=== PATIENT | female | born 1970 | race Caucasian/White ===

== ENCOUNTER 2025-01-07 11:47 | Outpatient (AMB) | payer OTHER, SELFPAY ==
--- NOTE | 2025-01-07 11:47 | MHC.PC.OV ---
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 Required: No Is last menstrual period known: No Post menopausal: No Patient : No Allergies No Known Allergies Allergy (Verified 01/07/25 12:14) Medication List - Last Reviewed 01/07/25 by Rhonda Sargent MA atorvastatin 10 mg PO DAILY cetirizine (Zyrtec) 10 mg PO DAILY PRN levothyroxine 100 mcg orally Friday & Friday; levothyroxine orally friday - Friday; metformin 1,000 mg PO BID ui-bfx-tecdt-calcium carb-K1 400 mcg-500 mg calcium-20 mcg tabs PO pioglitazone 30 mg PO DAILY turmeric root extract 500 mg PO DAILY Tobacco use date assessed: 01/07/25 Dental Screening Dental Screen Date: 01/07/25 Did you have a dental visit in the last 12 months?: Yes Did you have a dental problem in the last 6 months where you did not have access to dental care?: No Was dental information given to patient?: Patient has dentist HPI HPI Comments History of Present Illness Details 54-year-old female presents to establish care. She admits to taking her medications as prescribed without adverse reactions. Last A1c check was a year ago. Prior PCP? - [facility] Last office visit/CPE/labs - Over a year ago Acute issue(s) - None Past Medical History - Diabetes, HLD, hypothyroidism, herplex simplex virus 1, umbilical hernia, allergies Surgical History - Right ankle surgery Family History - Dad: Alcohol abuse Social History - Nonsmoker. Does not vape. Drinks sugar-free wine occasionally. Denies recreational drug use - Has been making healthy dietary choices. Walks routinely. Difficulty maintaining sleep, tosses and turns, snores but never had asleep study Health maintenance - Last eye exam was about a year ago with [facility]. Encouraged to schedule an appointment for an eye exam. She will sign a release for her PCP to obtain her ophthalmology record - Last dental visit was a months ago - Last tetanus vaccine was more than 10 years ago; Declines vaccination today - Has not been vaccinated for the flu this season; declines vaccination - Last pap smear test was 6 years ago. Referred to [facility] hunting sales associate for a pap smear test - Last mammogram was last year with [facility]: normal. Record not currently available. Mammogram ordered - She has never had a colonoscopy. Declines colonoscopy. Denies family history of colon cancer. Cologuard ordered per request [facility] Medical History (Updated 01/07/25 @ 14:39 by Dedrick Viera CNP) Swelling Diabetes Thyroid disorder History of sinus problem Hernia Surgical History (Updated 01/07/25 @ 12:04 by Rhonda Sargent MA) History of ankle surgery Family History (Updated 01/07/25 @ 12:06 by Rhonda Sargent MA) Father Alcohol abuse Diabetes Sister Thyroid disorder Social History Housing: Apartment Patient Tobacco Use Status: Never used Tobacco e-Cigarette/Vaping Use: Never Used Second Hand Smoke Exposure: No service: No Current occupational status: employed Current occupation: [email or web address] Current occupational exposures/hazards: No Cognitive needs: No Hearing needs: No Vision needs: Yes Questionnaire PHQ-9 Over the last 2 weeks, how often have you been bothered by any of the following problems? 1. Little interest or pleasure in doing things: not at all 2. Feeling down, depressed, or hopeless: not at all 3. Trouble falling or staying asleep, or sleeping too much: not at all 4. Feeling tired or having little energy: several days 5. Poor appetite or overeating: not at all 6. Feeling bad about yourself - or that you are a failure or have let yourself or your family down: not at all 7. Trouble concentrating on things, such as reading the newspaper or watching television: not at all 8. Moving or speaking so slowly that other people could have noticed. Or the opposite - being so fidgety or restless that you have been moving around a lot more than usual: not at all 9. Thoughts that you would be better off or of hurting yourself in some way: not at all Total score: 1 Depression Screening Interpretation: Negative Depression Screening Done: Yes 69250 - PHQ-9 Billing: Yes Source: Developed by Drs. Davin Hwang, Maegan Lawson, Juan Albarado and colleagues, with an educational hermilo from [employer]. Thrive Questionnaire Date Thrive assessed: 01/07/25 I am a: Patient What is your living situation today?: I have a steady place to live Within the past 12 months, did the food you bought not last and you didn't have the money to get more?: Never true Within the past 12 months, did you worry whether your food would run out before you got money to buy more?: Never true Do you have trouble paying for medicines?: No Do you have trouble getting transportation to medical appointments?: No Do you have trouble paying your heating and electricity bill?: No Do you have trouble taking care of your child, family member or friend?: No Do you have trouble with day-to-day activities such as bathing, preparing meals, shopping, managing finances, etc.?: No Are you currently unemployed and looking for a job?: No Are you interested in more education?: No Please select the resources that you would like help with: None Currently or been in a relationship where the following occur: No concerns reported THRIVE Score: 0 AUDIT C Alcohol Use Questionnaire (AUDIT-C) 1. How often do you have a drink containing alcohol?: 2-4 times a month 2. How many drinks containing alcohol do you have on a typical day when you are drinking?: 3 or 4 3. How often do you have six or more drinks on one occasion?: Never Total Score: 3 Score Reviewed/Action Taken: Yes KATHERINE-7 AMB Questionnaire KATHERINE-7 Date KATHERINE - 7 assessed: 01/07/25 Feeling nervous, anxious, or on edge: 0 = Not at all Not being able to stop or control worryin = Not at all Worrying too much about different things: 0 = Not at all Trouble relaxin = Not at all Being so restless that it is hard to sit still: 0 = Not at all Becoming easily annoyed or irritable: 0 = Not at all Feeling afraid as if something awful might happen: 0 = Not at all Total KATHERINE-7 score (0-4 normal; 5-9 mild; 10-14 moderate; 15-21 severe): 0 Source: Developed by Drs. Davin Hwang, Maegan Lawson, Juan Albarado and colleagues, with an educational hermiol from [employer]. KATHERINE-7 Assessment Billing KATHERINE-7 Assessment Tool: KATHERINE-7 Assessment 97487 Review of Systems Const Details: Denies chills, Denies fatigue, Denies fever(s), Denies headache(s) and Denies weakness HEENT Denies change in vision, Denies dizziness, Denies headache(s), Denies hearing loss, Denies nasal congestion, Denies sinus pain, Denies sinus pressure and Denies sore throat Card Denies chest pain, Denies lightheadedness, Denies dyspnea and Denies other (palpitations) Resp Denies cough, Denies dyspnea and Denies wheezing GI Denies abdominal pain, Denies melena, Denies hematochezia, Denies change in bowel habits, Denies dyspepsia and Denies nausea Denies hematuria and Denies dysuria Musc Denies abnormal gait, Denies myalgias, Denies arthralgias, Denies numbness and Denies tingling Skin/Breast Denies rash, Denies unusual bruising and Denies wounds Neuro Denies abnormal gait, Denies dizziness, Denies headache(s), Denies memory loss, Denies numbness, Denies Sensory deficit (Neuro), Denies tingling and Denies weakness Psych Denies anxiety, Denies depression and Denies memory loss Endo Denies cold intolerance, Denies fatigue, Denies heat intolerance, Denies polydipsia and Denies polyuria Aaron/Lymph Denies easy bleeding and Denies easy bruising Aller/Immun Denies wheezing Physical exam (Primary Care) Vital Signs: Last Vital Signs Temp 98.6 F 01/07/25 12:00 Pulse 78 01/07/25 12:00 Resp 16 01/07/25 12:00 BP 123/70 01/07/25 12:00 Pulse Ox 98 01/07/25 12:00 Oxygen Delivery Method Room Air 01/07/25 12:00 BMI result Body Mass Index 39.6 Tobacco/Smoking Status: Tobacco use Status Tobacco use date assessed 01/07/25 01/07/25 11:59 Patient Tobacco Use Status Never used Tobacco 01/07/25 11:59 e-Cigarette/Vaping Use Never Used 01/07/25 11:59 PHQ-9: PHQ-9 Score PHQ-9: Total score 1 01/07/25 12:10 Depression Screening Interpretation: Negative Thrive Assessment: Date of Thrive Assessment Date Thrive assessed 01/07/25 01/07/25 11:59 Currently or been in a relationship where the following occur: No concerns reported Const Other: General: no acute distress, well developed, alert and awake Nutritional Appearance: well nourished Orientation/consciousness: patient oriented x3 [facility] Head: Yes normocephalic and Yes atraumatic Ears: hearing grossly normal bilaterally and TM's normal bilaterally General nose exam: Normal external nose present and Normal nares present Mouth: Normal oral and palatal mucosa present and moist mucous membranes Teeth and gingiva: dentition normal Throat: Yes oropharynx normal Eyes Pupils: Equal, round and reactive pupils present and Pupil accommodation reflex normal EOM: EOMs intact bilaterally Neck Neck: Yes normal visual inspection, Yes no lymphadenopathy and Yes trachea midline Thyroid: Thyroid normal Carotids: no bruits Lymphatic: no lymphadenopathy noted Chest Chest palpation & inspection: normal inspection of the chest Resp Effort & Inspection: normal respiratory effort Auscultation: clear to auscultation bilaterally Cardio Rate: regular rate Rhythm: regular rhythm Heart sounds: S1 normal heart sound present, S2 normal heart sound present, no gallops, no murmurs and no rubs Bruits: no abdominal aortic bruits and no carotid bruits GI Palpation (GI): No Abdominal aortic bruit present, Soft to palpation, nontender, No hepatosplenomegaly present and No Rebound tenderness present Auscultation: normal bowel sounds General: Yes no CVA tenderness Back/Spine/Pelvis Back: no CVA tenderness Cervical Spine: cervical ROM normal and No Cervical spine tenderness Thoracic/Lumbar Spine: thoraco-lumbar ROM normal, No pain with thoraco-lumbar ROM, No thoracic spinal tenderness and No lumbar spinal tenderness Skin General: warm and dry. Normal skin color. Normal skin turgor Lesions: no lesions Rashes: no rashes Trauma: no lacerations or abrasions Wounds: no wounds Nails: normal Neuro General: patient oriented x3, gait normal and CN's II-XI intact bilaterally Cranial nerves: Yes Equal, round and reactive pupils present Cognition (Neuro): normal cognition Gait exam (Neuro): Normal gait present Motor exam (neuro): 5/5 motor strength present throughout Sensory Exam: No Sensory deficit (Neuro) Deep tendon reflexes (DTR's): Right patellar reflex intensity grade: 2+ and Left patellar reflex intensity grade: 2+ Extrem General: Yes normal to inspection, No edema and No calf tenderness Psych Appearance: grossly normal Affect: normal affect Attitude: cooperative Thought process: Normal thought process present Results AMB Hemoglobin A1c AMB Hemoglobin A1c 5.5 % Last Edit by Rhonda Sargent MA on 01/07/25 12:45 Results Reviewed Results Reviewed: Laboratory Last Values Hgb A1c (Clinic) 5.5 % (4.0-6.0) 01/07/25 12:34 Coding Level of Care Code New Pt Level 4 (12691) New Pt Prev Care 40-64y(91037) Diagnoses Normal physical examination, routine Z00.00 Type 2 diabetes mellitus E11.9 Hypothyroidism E03.9 Sleep disturbance G47.9 Snoring R06.83 Obesity (BMI 30-39.9) E66.9 Pap smear for cervical cancer screening Z12.4 Breast cancer screening by mammogram Z12.31 Colon cancer screening Z12.11 Additional Codes KATHERINE-7 Assessment Billing - KATHERINE-7 Assessment Tool: KATHERINE-7 Assessment 88660 ([id number]) PHQ-9 - 54902 - PHQ-9 Billing: Yes ([id number]) Assessment & Plan Assessment & Plan (1) Normal physical examination, routine: Code(s): Z00.00 - Encounter for general adult medical examination without abnormal findings Category: Medical Plan: No significant functional limitation noted. Continue current treatment regimen. Healthy diet and routine exercise encouraged. Perform lab work and follow-up in 2 weeks for a telehealth visit for labs review and weight management. Return sooner with symptoms or concerns. Verbalized understanding and agreed with the plan. (2) Type 2 diabetes mellitus: Code(s): E11.9 - Type 2 diabetes mellitus without complications Category: Medical Plan: A1d today is 5.5%, within goal of less than 7.0%. Continue current treatment regimen. ADA diet and routine exercise encouraged. Will recheck A1c in 3 months. Verbalized understanding and ageed with the plan. (3) Hypothyroidism: Code(s): E03.9 - Hypothyroidism, unspecified Category: Medical Plan: Continue current management. Will check TSH/T4 and make changes as needed. Verbalized understanding and agreed with the plan. (4) Sleep disturbance: Code(s): G47.9 - Sleep disorder, unspecified Category: Medical Plan: She has difficulty maintaining sleep, tosses and turns, snores but never had asleep study. Instructed on sleep hygiene. Weight management encouraged. Referred to [facility] sleep medicine for a sleep study. (5) Snoring: Code(s): R06.83 - Snoring Category: Medical Plan: Plan as above. (6) Obesity (BMI 30-39.9): Code(s): E66.9 - Obesity, unspecified Category: Medical Plan: She currently weighs 245 lb, BMI is 39.6. She notes this has been making healthy lifestyle choices but has not been able to lose weight. She requests phentermine and college or university department head/dietitian referral for weight management. Healthy diet and routine exercise encouraged. Phentermine 15 mg daily q.a.m. ordered; advised to take as prescribed. Instructed on the risks, benefits, and potential adverse reactions of the medication. Referred to [facility] college or university department head/dietitian. Follow-up for a telehealth visit in 2 weeks or sooner with symptoms or concerns. Verbalized understanding and agreed with the plan. (7) Pap smear for cervical cancer screening: Code(s): Z12.4 - Encounter for screening for malignant neoplasm of cervix Category: Medical Plan: Last pap smear test was 6 years ago. Referred to [facility] hunting sales associate for a pap smear test. (8) Breast cancer screening by mammogram: Code(s): Z12.31 - Encounter for screening mammogram for malignant neoplasm of breast Category: Medical Plan: Last mammogram was last year with [facility]: normal. Record not currently available. Mammogram ordered. (9) Colon cancer screening: Code(s): Z12.11 - Encounter for screening for malignant neoplasm of colon Category: Medical Plan: She has never had a colonoscopy. Declines colonoscopy. Denies family history of colon cancer. Cologuard ordered per request. Orders: Orders Comprehensive Placida. Panel Fast Today Z00.00 - Encounter for general adult medical examination without abnormal findings UA CC w/rflx Micro + Cult Today Z00.00 - Encounter for general adult medical examination without abnormal findings MM screening mammo BI Today Z12.31 - Encounter for screening mammogram for malignant neoplasm of breast Complete Blood Count Auto Diff Today Z00.00 - Encounter for general adult medical examination without abnormal findings Lipid Panel Today Z00.00 - Encounter for general adult medical examination without abnormal findings Microalbumin, Random (w Creat) Today Z00.00 - Encounter for general adult medical examination without abnormal findings TSH reflex Free T4 Today Z00.00 - Encounter for general adult medical examination without abnormal findings Vitamin D 25-OH Total Today Z00.00 - Encounter for general adult medical examination without abnormal findings AMB Hemoglobin A1c Today Z13.9 - Encounter for screening, unspecified Referrals Sleep Medicine Referral G47.9 - Sleep disorder, unspecified, R06.83 - Snoring Cologuard Test Z12.11 - Encounter for screening for malignant neoplasm of colon Nutrition/Dietitian Referral E66.9 - Obesity, unspecified Medications: New phentermine must administer 2 hours after breakfast 15 mg PO DAILY 30 days 30 caps 3RF phentermine must administer 2 hours after breakfast 15 mg PO DAILY 30 days 30 caps 0RF
[2025-01-07 12:00] VITALS: BP 123/70; PULSE 78; RESP 16; TEMP 37; O2SAT 98; BMI 39.6
--- OUTSIDE RECORDS SUMMARY | 2025-01-07 12:38 | XMS_ITS | Clinical Summary ---
Author Organization [facility] Address [address] [place] [address] Care Team Providers Care Vocational Guidance Counselor Name Role Phone Diana Mcwilliams MD Primary Care Provider [phone] Allergies Active Allergy Reactions Criticality Noted Date Comments Other 05/07/2024 Medications atorvastatin (LIPITOR) 10 mg tablet Take 1 Tablet by mouth daily. 05/26/2024 Active levothyroxine (SYNTHROID, LEVOTHROID) 100 mcg tablet TAKE 1 TABLET BY MOUTH TWICE A WEEK. ONLY ON WEEKENDS. 05/26/2024 Active levothyroxine (SYNTHROID, LEVOTHROID) 125 mcg tablet TAKE 1 TABLET BY MOUTH ONCE DAILY ON FRIDAY- Friday05/26/2024 Active metFORMIN (GLUCOPHAGE) 1,000 mg tablet Take 1 Tablet by mouth 2 times daily (with meals). 05/26/2024 Active pioglitazone (ACTOS) 30 mg tablet Take 1 Tablet by mouth daily. 05/26/2024 Active SITagliptin phosphate (Januvia) 100 mg tablet Take 1 Tablet by mouth daily. 05/26/2024 Active valACYclovir (VALTREX) 1 gram tablet Take 2 Tablets by mouth 2 times daily. 05/26/2024 Active Active Problems Problem Noted Date Diagnosed Date DM (diabetes mellitus) (CMS/HCC V24, CMS/HCC V28 ) 11/19/2023 Fatty liver 11/19/2023 Hypothyroidism 11/19/2023 Closed fracture of ankle 09/22/2006 Overview (09/02/2024): right ankle fracture, age 18, surgical repair IMO update HSV infection 09/22/2006 Overview (09/02/2024): right ankle fracture, age 18, surgical repair Medical History Medical History Date Comments Unspecified closed fracture of ankle 09/22/2006 DX:Unspecified closed fracture of ankle; COMMENT: right ankle fracture, age 18, surgical repair DM (diabetes mellitus) (CMS/ HCC V24, CMS/HCC V28) DX:DM (diabetes mellitus) (H CC) Fatty liver DX:Fatty liver Hypothyroidism DX:Hypothyroidis m HSV infection DX:HSV infection Family History Medical History Relation Name Comments Diabetes Father 64 Other: alive and well Mother Relation Name Status Comments Father Mother Social History Tobacco Use Types Packs/Day Years Used Date Smoking Tobacco: Never Smokeless Tobacco: Never Alcohol Use Standard Drinks/Week Comments Never 0 (1 standard drink = 0.6 oz pur e alcohol) Comments Unknown Sex and Gender Information Value Date Recorded Sex Assigned at Not on file Legal Sex Female 8:40 PM EST Gender Identity Not on file Sexual Orientation Not on file Obstetrics History Last Filed Vital Signs Vital Sign Reading Time Taken Comments Blood Pressure 103/72 05/07/2024 9:24 AM EDT Pulse 79 05/07/2024 9:24 AM EDT Temperature - - Respiratory Rate - - Oxygen Saturation - - Inhaled Oxygen Concentration - - Weight 110 kg (242 lb) 05/07/2024 9:24 AM EDT Height 167.6 cm (5' 6 ) 05/07/2024 9:24 AM EDT Body Mass Index 39.06 05/07/2024 9:24 AM EDT Plan of Treatment Upcoming Encounters Date Type Department Care Team (Late st Contact Info) Description 02/28/2025 2:30 PM EDT Office Visit Bariatric Surgery - [place] [address] [phone] Renata Gonzalez PA 175 [facility] [address] [place] [address] Health Maintenance Due Date Last Done Comments Diabetes: Annual Foot Exam 1979 DTaP,Tdap,and Td Vaccines (1 - Tdap) 01/14/1988 Hepatitis A Vaccines (1 of 2 - Risk 2-dose series) 01/14/1988 Hepatitis B Vaccines (1 of 3 - 19+ 3-dose series) 01/14/1988 Pneumococcal Vaccine: 50+ Years (1 of 2 - PCV) 01/14/1988 Pneumococcal Vaccine: Pediatrics (0 to 5 Years) and At-Risk Patients (6 to 64 Years) (1 of 2 - PCV) 01/14/1988 Cervical Cancer Screening: P ap Smear 1990 Zoster Vaccines (1 of 2) 2019 Colorectal Cancer Screening: Colonoscopy 07/13/2022 Depression Screening 07/13/2022 HIV Screening 07/13/2022 Hepatitis C Screening 07/13/2022 Social Influencers of Health Screening 07/13/2022 COVID-19 Vaccine (2023-2 5 season) 2024 Breast Cancer Screening 06/02/2024 06/02/20, 04/08/2021, 03/16/2019 Diabetes: Annual Retina Eye Exam 10/13/2024 10/14/2023 Diabetes: Blood Sugar Contro l Test (HGBA1C) 11/04/2024 05/07/2024, 05/07/2024 Diabetes: Annual Urine Albumin-Creatinine Ratio (uACR) 11/19/2024 11/20/2023 Diabetes: Annual GFR (Glomerular Filtration Rate) 11/19/2024 11/20/2023 Influenza Vaccine (Season Ended) 2025 Cholesterol Screening (Lipid Panel) 11/19/2028 11/20/2023 HIB Vaccines Aged Out No longer eligi ble based on patient's age to complete this topic HPV Vaccines Aged Out No longer eligi ble based on patient's age to complete this topic IPV Vaccines Aged Out No longer eligi ble based on patient's age to complete this topic MMR Vaccines Aged Out No longer eligi ble based on patient's age to complete this topic Meningococcal ACWY Vaccine Aged Out N o longer eligible based on patient's age to complete this topic Meningococcal B Vaccine Aged Out No l onger eligible based on patient's age to complete this topic RSV Immunization Patients Under 20 months Aged Out No longer eligible b ased on patient's age to complete this topic Varicella Vaccines Aged Out No longer eligible based on patient's age to complete this topic Procedures Procedure Name Priority Date/Time Associated Diagnosis Comments HEMOGLOBIN A1C Routine 05/07/2024 HM URINE ALBUMIN CREATININE RATIO Routine 11/20/2023 ANNUAL BMP BLOOD TEST Routine 11/20/2023 LIPID PANEL Routine 11/20/2023 DIABETES EYE EXAM Routine 10/14/2023 [facility] SCREENING DIGITAL Routine 06/02/2022 8:38 AM EDT Encounter for screening mammogram for malignant neoplasm of breast from Last 3 Months or Most Recently Relevant to Health Maintenance Results * Hemoglobin A1c (05/07/2024) Pathologist [facility] Hemoglobin A1C 5.6 <=6.5 % Blood Venous blood specimen / Unknown [facility] Provider LAB BLOOD ORDERABLES Christy l Result * Urine Albumin Creatinine Ratio (11/20/2023) Pathologist [facility] Urine Albumin Creatinine Ratio Abstracted [facility] Provider HEALTH MAINTENANCE Final Result * Annual BMP Blood Test (11/20/2023) Pathologist [facility] Annual BMP Blood Test Abstracted [facility] Provider HEALTH MAINTENANCE Final Result * Lipid panel (11/20/2023) [facility] LDL/HDL Ratio 2 0 - 4 Triglycerides 84 0 - 150 mg/dL Cholesterol 134 0 - 200 mg/dL HDL 59 >=40 mg/dL LDL Cholesterol 59 mg/dL Blood Venous blood specimen / Unknown [facility] Provider LAB BLOOD ORDERABLES Christy l Result * Diabetes Eye Exam (10/14/2023) Pathologist [facility] Diabetes: Annual Retina Eye Exam Abstracted [facility] Provider HEALTH MAINTENANCE Final Result * [facility] SCREENING DIGITAL (06/02/2022 8:38 AM EDT) Anatomical Region Laterality Modality Mammography 05/30/2022 10:0 3 AM EDT Narrative 06/02/2022 8:38 AM EDT [facility] Diagnostic Imaging Department [address] [place] [id number] Patient: ??MATT CARRENO ?/Age/Sex: 1970 - 52 - F Unit#: ??[id number] ? Location/Status: ??SPDIMAM/REG CLI ? Mnemonic/Ordering Site: ??DIGSC/SPMAM Ordering Physician: ??ALYSSIA GRAVES MD Ak[facility] Screening Digital - 06/01/22834 EXAM: Kath Screening Digital EXAM DATE AND TIME: 06/01/2022 8:35 AM HISTORY: ??Annual screening. ??Family history of breast carcinoma in maternal grandmother. COMPARISON: ??04/07/2021, 03/16/2019 TECHNIQUE: CC and MLO views of both breasts were obtained using full field digital mammography. Bilateral digital breast tomosynthesis was performed in the MLO projection. 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 TISSUE DENSITY: a. The breasts are almost entirely fatty. FINDINGS: Increased number of calcifications in the anterior left breast, 11 o'clock axis requiring spot magnification views for further evaluation. ??No mass or architectural distortion in the left breast. The right breast is stable. ??No suspicious masses, grouped microcalcifications, or areas of architectural distortion are seen. The skin and vascularity are unremarkable. IMPRESSION: Increased number of calcifications in the anterior left breast. ??Spot magnification CC and mediolateral views are recommended. No evidence of malignancy is seen in the right breast. A negative mammogram in the presence of a clinically suspicious palpable abnormality does not preclude the possibility of malignancy or alter the indications for biopsy. BI-RADS: ??Category 0: Incomplete - Need Additional Imaging Evaluation RECOMMENDATION(S): 1: Special view LEFT as soon as possible [id number], [id number], 7025F Dictating Physician: ??MACK BEACH MD Electronically Signed by: ??MACK BEACH MD Dic Date/Time: ??06/02/22831 Sign date/Time: ??06/02/22837 Procedure Note Luci Beach MD - 07/31/2022 [facility] Diagnostic Imaging Department [address] [place] [address] Patient: MATT CARRENO Jordan /Age/Sex: 1970 - 52 - F Unit#: [id number] [facility]Ordering Site[facility] Ordering Physician: ALYSSIA GRAVES MD [facility] Screening Digital - 06/01/22834 EXAM: [facility] Screening Digital EXAM DATE AND TIME: 06/01/2022 8:35 AM HISTORY: Annual screening. Family history of breast carcinoma inmaternal grandmother. COMPARISON: 04/07/2021, 03/16/2019 TECHNIQUE: CC and MLO views of both breasts were obtained using fullfield digital mammography. Bilateral digital breast tomosynthesis was performedin the MLO projection. 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 TISSUE DENSITY: a. The breasts are almost entirely fatty. FINDINGS: Increased number of calcifications in the anterior left breast, 11 o'clockaxis requiring spot magnification views for further evaluation. No mass or architectural distortion in the left breast. The right breast is stable. No suspicious masses, groupedmicrocalcifications, or areas of architectural distortion are seen. The skin and vascularityare unremarkable. IMPRESSION: Increased number of calcifications in the anterior left breast. Spot magnification CC and mediolateral views are recommended. No evidence of malignancy is seen in the right breast. A negative mammogram in the presence of a clinically suspicious palpable abnormality does not preclude the possibility of malignancy or alter the indications for biopsy. BI-RADS: Category 0: Incomplete - Need Additional Imaging Evaluation RECOMMENDATION(S): 1: Special view LEFT as soon as possible [id number], [id number], 7025F Dictating Physician: MACK BEACH MD Electronically Signed by: MACK BEACH MD Dic Date/Time: 06/02/22831 Sign date/Time: 06/02/22837 Alyssia Graves MD IMG BI PROCEDURES Final Result from Last 3 Months or Most Recently Relevant to Health Maintenance Care Teams Vocational Guidance Counselor Relationship Specialty Start Date End Date Diana Mcwilliams MD PCP - General 10/13/23
== END 2025-01-07 13:06 | disposition home or self-care (01) ==
LOC: HO.HMCFM 11:47
PROVIDERS: PCP Nurse Practitioner Family; Visit Provider Nurse Practitioner Family
DX: Z00.00 Encounter for general adult medical examination without abnormal findings (principal); E11.9 Type 2 diabetes mellitus without complications; E66.9 Obesity, unspecified; Z68.39 Body mass index [BMI] 39.0-39.9, adult; E03.9 Hypothyroidism, unspecified; G47.9 Sleep disorder, unspecified; R06.83 Snoring; Z12.31 Encounter for screening mammogram for malignant neoplasm of breast; Z12.11 Encounter for screening for malignant neoplasm of colon

== ENCOUNTER → 2025-01-07 11:47 | Outpatient (BNVA) | payer OTHER, SELFPAY | PROVIDERS: PCP Nurse Practitioner Family; Visit Provider Nurse Practitioner Family | DX: Z00.00 Encounter for general adult medical examination without abnormal findings (principal); E11.9 Type 2 diabetes mellitus without complications; E03.9 Hypothyroidism, unspecified; E78.5 Hyperlipidemia, unspecified; G47.9 Sleep disorder, unspecified; R06.83 Snoring; E66.9 Obesity, unspecified; Z68.39 Body mass index [BMI] 39.0-39.9, adult | CPT/HCPCS: 83036; 96127; 99202; 99386 ==

== ENCOUNTER 2025-01-07 13:20 | Outpatient (REF) | payer OTHER, SELFPAY ==
[2025-01-07 14:52] LABS: MANUAL DIFF FLAG NO
[2025-01-07 15:03] LABS: Basophils Percent Auto 0.7 % (0-2); Eosinophils Absolute Auto 0.1 X10*3/uL (0.0-0.4); Eosinophils Percent Auto 2.3 % (0-4); Hematocrit 44.4 % (37.0-47.0); Hemoglobin 14.4 g/dl (12.0-16.0); Imm Gran Abs Auto 0.02 X10*3/uL (0.00-0.03); Imm Gran Pct Auto 0.4 % (0.0-0.4); Lymphocytes Absolute Auto 1.2 X10*3/uL (1.2-4.9); Lymphocytes Percent Auto 22.3 % (20-40); Mean Corpuscular HGB Conc 32.4 g/dl (31.0-35.0); Mean Corpuscular Hemoglobin 29.4 pg (27.0-33.0); Mean Corpuscular Volume 90.6 fL (80.0-98.0); Mean Platelet Volume 10.9 fL (9.4-12.3); Monocytes Absolute Auto 0.4 X10*3/uL (0.1-1.2); Monocytes Percent Auto 7.7 % (2-11); Neutrophils Absolute Auto 3.7 x10*3/uL (2.0-8.3); Neutrophils Percent Auto 66.6 % (45-73); Platelet Count 216 X10*3/uL (160-400); Red Cell Distribution Width 13.2 % (11.0-16.0); White Blood Count 5.6 X10*3/uL (4.8-10.8)
[2025-01-07 16:13] LABS: Alanine Aminotransferase 25 U/L (0-31); Albumin Level 4.5 g/dL (3.5-5.0); Anion Gap 11 (12-20); Aspartate Amino Transferase 26 U/L (5-31); Blood Urea Nitrogen 15 mg/dL (9-16); Calcium 10.5 mg/dL (8.4-10.2); Carbon Dioxide 28 mmol/L (22-29); Chloride 105 mmol/L (96-108); Cholesterol 167 mg/dL (<200); Estimated Glomerular Filt Rate > 60; Glucose Fasting 96 mg/dL (60-99); HDL Cholesterol 44 mg/dL (>40); LDL Cholesterol Calculated 81 mg/dL (<100); Potassium 4.2 mmol/L (3.3-5.1); Sodium 140 mmol/L (135-145); TSH reflex Free T4 0.67 uIU/mL (0.32-4.0); Total Protein 7.5 g/dL (6.5-8.0); Triglycerides 214 mg/dL (<150); Vitamin D 25-OH Total 37.4 ng/mL (>30)
[2025-01-07 17:07] LABS: Alkaline Phosphatase 56 U/L (39-117)
[2025-01-10 12:48] LABS: Creatinine Urine 298.79 mg/dL; Microalbum/Creatinine Ratio Ur 8.3 ug/mg cr (<30)
== END 2025-01-07 13:21 | disposition home or self-care (01) ==
LOC: HO.WFDLDS 13:20
PROVIDERS: Visit Provider Nurse Practitioner Family
DX: Z00.00 Encounter for general adult medical examination without abnormal findings (principal); Z13.220 Encounter for screening for lipoid disorders; Z13.29 Encounter for screening for other suspected endocrine disorder; Z13.228 Encounter for screening for other metabolic disorders; Z13.9 Encounter for screening, unspecified
CPT/HCPCS: 36415; 80053; 80061; 82043; 82306; 82570; 84443; 85025

== ENCOUNTER 2025-03-08 14:17 | Outpatient (AMB) | payer OTHER, SELFPAY ==
--- NOTE | 2025-03-08 14:05 | MHC.PC.OV ---
Intake Visit Reasons: Telehealth 2 wks labs review Intake Note: patient here for 2wks Telehealth follow up for lab review and patient needs refill on medication. Senior Teradata Developer Required: No Is last menstrual period known: No Post menopausal: No Patient : No Allergies No Known Allergies Allergy (Verified 03/08/25 14:05) Tobacco use date assessed: 03/08/25 Dental Screening Dental Screen Date: 03/08/25 Did you have a dental visit in the last 12 months?: Yes Did you have a dental problem in the last 6 months where you did not have access to dental care?: No Was dental information given to patient?: Patient has dentist HPI HPI Comments History of Present Illness Details 55-year-old female presents for a telehealth visit for review of recent labs result. She admits to taking her medications as prescribed without adverse reactions. She notes that she has been making healthy lifestyle changes. She did not schedule an appointment with [facility] service engine repairer/dietitian because her schedule does not permit. No acute symptoms at this time. [facility] Medical History (Updated 03/08/25 @ 15:39 by Dedrick Viera CNP) Swelling Diabetes Thyroid disorder History of sinus problem Hernia Surgical History (Updated 01/07/25 @ 12:04 by Rhonda Sargent MA) History of ankle surgery Family History (Updated 01/07/25 @ 12:06 by Rhonda Sargent MA) Father Alcohol abuse Diabetes Sister Thyroid disorder Social History Housing: Apartment Patient Tobacco Use Status: Never used Tobacco e-Cigarette/Vaping Use: Never Used Second Hand Smoke Exposure: No Patient : No service: No Current occupational status: employed 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 Davin Hwang, Maegan Lawson, Juan Albarado and colleagues, with an educational hermilo from [employer]. Review of Systems Const Details: Denies chills, Denies fatigue, Denies fever(s), Denies headache(s) and Denies weakness Cardiac Denies chest pain, Denies claudication, Denies leg edema, Denies lightheadedness, Denies palpitations, Denies dyspnea, Denies dyspnea on exertion, Denies orthopnea and Denies other (Loss of consciousness) Resp Denies cough, Denies excessive phlegm production, Denies dyspnea, Denies dyspnea on exertion, Denies snoring and Denies wheezing Physical exam (Primary Care) Tobacco/Smoking Status: Tobacco use Status Tobacco use date assessed 03/08/25 03/08/25 14:14 Patient Tobacco Use Status Never used Tobacco 03/08/25 14:14 e-Cigarette/Vaping Use Never Used 03/08/25 14:14 Thrive Assessment: Date of Thrive Assessment Date Thrive assessed 01/07/25 03/08/25 14:14 Const Other: Patient is alert alert and oriented x3 Telehealth Telehealth Telehealth Platform: Telephone Location of provider rendering services: practice address Location of patient: address on file Patient Identification confirmed using: Name, : Yes Telehealth method: voice only Patient verbally consented to treatment: Yes Patient verbally consented to billing insurance company: Yes Patient informed of any privacy concerns related to visit: Yes Coding Level of Care Code Tele New Pt Level 4 (74738) Diagnoses Hyperlipidemia E78.5 Hypercalcemia E83.52 Time Spent (min) 15 Assessment & Plan Assessment & Plan (1) Hyperlipidemia: Code(s): E78.5 - Hyperlipidemia, unspecified Category: Medical Plan: Recent triglycerides level in December is elevated, 214. Total cholesterol, LDL, and HDL levels are normal. Continue current treatment regimen. Advised to limit foods high in saturated fat and avoid foods high in trans fat. Routine exercise encouraged. Fast for 10-12 hours, may drink water, and perform lipid panel blood work a few days before next visit. Follow-up in 5 weeks for labs review and diabetes. Return sooner with symptoms or concerns. Verbalized understanding and agreed with the plan. (2) Hypercalcemia: Code(s): E83.52 - Hypercalcemia Category: Medical Plan: Recent calcium level in December is slightly elevated, 10.5. Will recheck calcium levels and make changes as needed. Orders: Orders Calcium 1 Month E83.52 - Hypercalcemia Lipid Panel 1 Month E78.5 - Hyperlipidemia, unspecified
--- OUTSIDE RECORDS SUMMARY | 2025-03-08 14:58 | XMS_ITS | Clinical Summary ---
Author Organization [facility] Address [address] [place] [address] Care Team Providers Care Commissioning Specialist Name Role Phone Unavailable Primary Care Provider Unavailabl e Allergies Active Allergy Reactions Criticality Noted Date [...] Information Value Date Recorded Sex Assigned at Female 02/22/2025 12:23 PM EDT Legal Sex Female 8:40 PM EST Gender Identity Female 02/22/2025 12:23 PM EDT Sexual Orientation Straight 02/22/2025 12 :23 PM EDT Obstetrics History Last Filed Vital Signs Vital [...] 05/07/2024 9:24 AM EDT Plan of Treatment Health Maintenance Due Date Last Done Comments Diabetes: Annual Foot Exam 1979 DTaP,Tdap,and Td Vaccines (1 - Tdap) 01/14/1988 Hepatitis A Vaccines (1 of 2 - Risk 2-dose series) 01/14/1988 Hepatitis B Vaccines (1 of 3 - 19+ 3-dose series) 01/14/1988 Pneumococcal Vaccine: 50+ Years (1 of 2 - PCV) 01/14/1988 Cervical Cancer Screening: P ap Smear 1990 Zoster Vaccines (1 of 2) 2019 Colorectal Cancer Screening: Colonoscopy 07/13/2022 HIV Screening 07/13/2022 Hepatitis C Screening 07/13/2022 Social Influencers of Health Screening 07/13/2022 COVID-19 Vaccine ( - 2023-2 5 season) 2024 Breast Cancer Screening 06/02/2024 06/02/20, 04/08/2021, 03/16/2019 Depression Screening 08/11/2024 Diabetes: Annual Retina Eye Exam 10/13/2024 10/14/2023 Diabetes: Blood Sugar Contro l Test (HGBA1C) 11/04/2024 05/07/2024, 05/07/2024 Diabetes: Annual Urine Albumin-Creatinine Ratio (uACR) 11/19/2024 11/20/2023 Diabetes: Annual GFR (Glomerular Filtration Rate) 11/19/2024 11/20/2023 Influenza Vaccine (#1) 2025 Cholesterol Screening (Lipid Panel) 11/19/2028 11/20/2023 [...] Associated Diagnosis Comments HEMOGLOBIN A1C Routine 05/07/2024 URINE ALBUMIN CREATININE RATIO Routine 11/20/2023 ANNUAL BMP BLOOD TEST Routine 11/20/2023 LIPID PANEL Routine 11/20/2023 DIABETES EYE EXAM Routine 10/14/2023 [facility] SCREENING DIGITAL Routine 06/02/2022 8:38 AM EDT Encounter for screening mammogram for malignant neoplasm of breast from Last 3 Months or Most Recently Relevant to Health Maintenance Results * Hemoglobin A1c (05/07/2024) [facility] Hemoglobin A1C 5.6 <=6.5 % Blood Venous blood specimen / Unknown [facility] Provider LAB BLOOD ORDERABLES Christy l Result * Urine Albumin Creatinine Ratio (11/20/2023) [facility] Urine Albumin Creatinine Ratio Abstracted [facility] Provider HEALTH MAINTENANCE Final Result * Annual BMP Blood Test (11/20/2023) [facility] Annual BMP Blood Test Abstracted [facility] Provider HEALTH MAINTENANCE Final Result * Lipid panel (11/20/2023) [facility] LDL/HDL Ratio 2 0 - 4 Triglycerides 84 0 - 150 mg/dL Cholesterol 134 0 - 200 mg/dL HDL 59 >=40 mg/dL LDL Cholesterol 59 mg/dL Blood Venous blood specimen / Unknown Result [facility] Provider LAB BLOOD ORDERABLES Christy l Result * Diabetes Eye Exam (10/14/2023) [facility] Diabetes: Annual Retina Eye Exam Abstracted Result [facility] Provider HEALTH MAINTENANCE Final Result * KATH SCREENING DIGITAL (06/02/2022 8:38 AM EDT) Anatomical Region Laterality Modality Mammography 05/30/2022 10:0 3 AM EDT Narrative 06/02/2022 8:38 AM EDT [facility] Diagnostic Imaging Department [address] [place] [address] Patient: MATT CARRENOO.B./Age/Sex: 1970 - 52 - F Unit#: [id number] Location/Status: [facility]/REG I Mnemonic/Ordering Site: [facility] Ordering Physician: ALYSSIA GRAVES MD Kath Screening Digital - 06/01/22834 EXAM: Kath Screening Digital EXAM DATE AND TIME: 06/01/2022 8:35 AM HISTORY: Annual screening. Family history of breast carcinoma in maternal grandmother. COMPARISON: 04/07/2021, 03/16/2019 TECHNIQUE: CC and MLO views of both breasts were obtained using full field digital mammography. Bilateral digital breast tomosynthesis was performed in the MLO projection. 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 TISSUE DENSITY: a. The breasts are almost entirely fatty. FINDINGS: Increased number of calcifications in the anterior left breast, 11 o'clock axis requiring spot magnification views for further evaluation. No mass or architectural distortion in the left breast. The right breast is stable. No suspicious masses, grouped microcalcifications, or areas of [...] Special view LEFT as soon as possible [id number], [id number] 3340F, 7025F Dictating Physician: MACK BEACH MD Electronically Signed by: MACK BEACH MD Dic Date/Time: 06/02/22831 Sign date/Time: 06/02/22837 Procedure Note Luci Beach MD - 07/31/2022 [facility] Diagnostic Imaging Department [address] [place] [address] Patient: MATT CARRENO Jordan /Age/Sex: 1970 - 52 - F Unit#: [id number] Location/Status: SPDIMA/REG CLI Mnemonic/Ordering Site: [facility] Ordering Physician: ALYSSIA GRAVES MD Kath Screening Digital - 06/01/22834 EXAM: Kath Screening Digital EXAM DATE AND TIME: 06/01/2022 8:35 AM HISTORY: Annual screening. Family history of breast carcinoma inmaternal grandmother. COMPARISON: 04/07/2021, 03/16/2019 TECHNIQUE: CC and MLO views of both breasts were obtained using fullfield digital mammography. Bilateral digital breast tomosynthesis was performedin the MLO projection. 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 TISSUE DENSITY: a. The breasts are [...] Special view LEFT as soon as possible [id number], [id number] 3340F, 7008F Dictating Physician: MACK BEACH MD Electronically Signed by: MACK BEACH MD Dic Date/Time: 06/02/22831 Sign date/Time: 06/02/22837 us Alyssia Graves MD IMG BI PROCEDURES Final Result from Last 3 Months or Most Recently Relevant to Health Maintenance
== END 2025-03-08 16:00 | disposition home or self-care (01) ==
LOC: HO.HMCFM 14:17
PROVIDERS: PCP Nurse Practitioner Family; Visit Provider Nurse Practitioner Family
DX: E78.5 Hyperlipidemia, unspecified (principal); E83.52 Hypercalcemia

== ENCOUNTER 2025-04-22 08:28 | Outpatient (REF) | payer OTHER, SELFPAY ==
--- OUTSIDE RECORDS SUMMARY | 2025-04-22 08:57 | XMS_ITS | Clinical Summary ---
Author Organization [facility] Address [address] [place] [address] Care Team Providers Care Insight Leader Name Role Phone Unavailable Primary Care Provider [...] 07/13/2022 Social Influencers of Health Screening 07/13/2022 Breast Cancer Screening 06/02/2024 06/02/20 22, 04/08/2021, 03/16/2019 Depression Screening 08/11/2024 Diabetes: Annual Retina Eye Exam 10/13/2024 10/14/2023 Diabetes: Blood Sugar Contro l Test (HGBA1C) 11/04/2024 05/07/2024, 05/07/2024 Diabetes: Annual Urine Albumin-Creatinine Ratio (uACR) 11/19/2024 11/20/2023 Diabetes: Annual GFR (Glomerular Filtration Rate) 11/19/2024 11/20/2023 COVID-19 Vaccine (2023-2 5 season) 2025 Influenza Vaccine (#1) 2025 Cholesterol Screening (Lipid [...] Health Maintenance Results * Hemoglobin A1c (05/07/2024) [facility] Hemoglobin A1C 5.6 <=6.5 % Blood Venous blood specimen / Unknown [facility] Provider LAB BLOOD ORDERABLES Christy l Result * Urine Albumin Creatinine Ratio (11/20/2023) [facility] Urine Albumin Creatinine Ratio Abstracted [facility] Provider HEALTH MAINTENANCE Final Result * Annual BMP Blood Test (11/20/2023) [facility] Annual BMP Blood Test Abstracted [facility] Provider HEALTH MAINTENANCE Final Result * Lipid panel (11/20/2023) [facility] LDL/HDL Ratio 2 0 - 4 Triglycerides 84 0 - 150 mg/dL Cholesterol 134 0 - 200 mg/dL HDL 59 >=40 mg/dL LDL Cholesterol 59 mg/dL Blood Venous blood specimen / Unknown Result [facility] Provider LAB BLOOD ORDERABLES Christy l Result * Diabetes Eye Exam (10/14/2023) [facility] Diabetes: Annual Retina Eye Exam Abstracted Result [facility] Provider HEALTH MAINTENANCE Final Result * KATH SCREENING DIGITAL (06/02/2022 8:38 AM EDT) Anatomical Region Laterality Modality Mammography 05/30/2022 10:0 3 AM EDT Narrative 06/02/2022 8:[address] [facility] Diagnostic Imaging Department [address] [place] [address] Patient: MATT CARRENOO.B./Age/Sex: 1970 - 52 - F Unit#: [id number] Location/Status: [facility]/REG I Mnemonic/Ordering Site: [facility] Ordering Physician: ALYSSIA GRAVES MD Kath Screening [...] MLO projection. 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 TISSUE DENSITY: a. The [...] Special view LEFT as soon as possible [id number], [id number] 3340F, 7025F Dictating Physician: MACK BEACH MD Electronically Signed by: MACK BEACH MD Dic Date/Time: 06/02/22831 Sign date/Time: 06/02/22837 Procedure Note Luci Beach MD - 07/31/2022 [facility] Diagnostic Imaging Department [address] [place] [address] Patient: MATT CARRENO Jordan /Age/Sex: 1970 - 52 - F Unit#: [id number] Location/Status: [facility]/REG CLI Mnemonic/Ordering Site: [facility] Ordering Physician: ALYSSIA GRAVES MD Kath Screening Digital - 06/01/22834 EXAM: Kath Screening Digital EXAM DATE AND TIME: 06/01/2022 8:35 AM HISTORY: Annual screening. Family history of breast carcinoma inmaternal grandmother. COMPARISON: 04/07/2021, 03/16/2019 TECHNIQUE: CC and MLO views of both breasts were obtained using fullfield digital mammography. Bilateral digital breast tomosynthesis was performedin the MLO projection. 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 TISSUE DENSITY: a. The breasts are [...] Special view LEFT as soon as possible [id number], [id number], 7038F Dictating Physician: MACK BEACH MD Electronically Signed by: MACK BEACH MD Dic Date/Time: 06/02/22831 Sign date/Time: 06/02/22837 us Alyssia Graves MD IMG BI PROCEDURES Final Result from Last 3 Months or Most Recently Relevant to Health Maintenance
[2025-04-22 11:52] LABS: Appearance Urine Clear; Glucose Urine UA Negative (Negative); PH 5.5 (5.0-9.0); Specific Gravity - Urine 1.015 (1.005-1.025)
[2025-04-22 12:23] LABS: Calcium 9.7 mg/dL (8.4-10.2); Cholesterol 135 mg/dL (<200); HDL Cholesterol 48 mg/dL (>40); Triglycerides 92 mg/dL (<150)
== END 2025-04-22 08:29 | disposition home or self-care (01) ==
LOC: HO.WFDLDS 08:28
PROVIDERS: Visit Provider Nurse Practitioner Family
DX: Z00.00 Encounter for general adult medical examination without abnormal findings (principal); E83.52 Hypercalcemia; E78.5 Hyperlipidemia, unspecified
CPT/HCPCS: 36415; 80061; 81003; 82043; 82310; 82570

== ENCOUNTER 2025-04-29 15:52 | Outpatient (AMB) | payer OTHER, SELFPAY ==
--- NOTE | 2025-04-29 15:54 | MHC.PC.OV ---
Vital Signs 04/29/25 15:59 Height 5 ft 6 in Weight 241 lb 6 oz BMI 39.0 BP 125/66 Blood Pressure Location Lt brachial Position Sitting Respiration 16 Pulse 84 Pulse Source Pulse Oximeter Temp 98.3 F Temp Source Oral Pulse Oximetry (%) 98 Oxygen Delivery Method Room Air Intake Visit Reasons: 5 wks DM, labs review Intake Note: patient here for 5 wks DM and lab review Osteologist Required: No Is last menstrual period known: No Post menopausal: No Patient : No Allergies No Known Allergies Allergy (Verified 04/29/25 16:13) Medication List - Last Reconciled 04/29/25 by Dedrick Viera CNP apple cider vinegar 480 mg PO DAILY atorvastatin 10 mg PO DAILY cetirizine (Zyrtec) 10 mg PO DAILY PRN coenzyme Q10 200 mg PO DAILY levothyroxine 100 mcg orally Friday & Friday; levothyroxine orally friday - Friday; lysine 1,000 mg PO DAILY mecobalamin (vitamin B12) 1,000 mcg PO DAILY metformin 1,000 mg PO BID qr-alo-endda-calcium carb-K1 400 mcg-500 mg calcium-20 mcg tabs PO phentermine 15 mg PO DAILY 30 days pioglitazone 30 mg PO DAILY turmeric root extract 500 mg PO DAILY valacyclovir (Valtrex) 1,000 mg PO DAILY 5 days Tobacco use date assessed: 04/29/25 Dental Screening Dental Screen Date: 04/29/25 Did you have a dental visit in the last 12 months?: Yes Did you have a dental problem in the last 6 months where you did not have access to dental care?: No Was dental information given to patient?: Patient has dentist HPI HPI Comments History of Present Illness Details 55-year-old female presents for diabetes and review of recent lab results. She admits to taking her medications as prescribed without adverse reactions. She wants to stop taking pioglitazone now that her A1c is controlled. She notes that she has been making healthy lifestyle changes. She has only lost a few pounds since she started taking phentermine. She requests an increased dose. 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 She offers no complaints and denies acute symptoms at this time. [facility] Medical History (Updated 04/29/25 @ 16:29 by Dedrick Viera CNP) Swelling Diabetes Thyroid disorder History of sinus problem Hernia Surgical History (Updated 01/07/25 @ 12:04 by Rhonda Sargent MA) History of ankle surgery Family History (Updated 01/07/25 @ 12:06 by Rhonda Sargent MA) Father Alcohol abuse Diabetes Sister Thyroid disorder Social History Housing: Apartment Patient Tobacco Use Status: Never used Tobacco e-Cigarette/Vaping Use: Never Used Second Hand Smoke Exposure: No service: No Current occupational status: employed Current occupation: Current occupational exposures/hazards: No Cognitive needs: No Hearing needs: No Vision needs: Yes Questionnaire PHQ-9 Over the last 2 weeks, how often have you been bothered by any of the following problems? 1. Little interest or pleasure in doing things: not at all 2. Feeling down, depressed, or hopeless: not at all 3. Trouble falling or staying asleep, or sleeping too much: more than half the days 4. Feeling tired or having little energy: not at all 5. Poor appetite or overeating: not at all 6. Feeling bad about yourself - or that you are a failure or have let yourself or your family down: not at all 7. Trouble concentrating on things, such as reading the newspaper or watching television: not at all 8. Moving or speaking so slowly that other people could have noticed. Or the opposite - being so fidgety or restless that you have been moving around a lot more than usual: not at all 9. Thoughts that you would be better off or of hurting yourself in some way: not at all Total score: 2 Source: Developed by Drs. Davin Hwang, Maegan Lawson, Juan Albarado and colleagues, with an educational hermilo from [employer]. Thrive Questionnaire Date Thrive assessed: 01/04/25 I am a: Patient What is your living situation today?: I have a steady place to live Within the past 12 months, did the food you bought not last and you didn't have the money to get more?: Never true Within the past 12 months, did you worry whether your food would run out before you got money to buy more?: Never true Do you have trouble paying for medicines?: No Do you have trouble getting transportation to medical appointments?: No Do you have trouble paying your heating and electricity bill?: No Do you have trouble taking care of your child, family member or friend?: No Do you have trouble with day-to-day activities such as bathing, preparing meals, shopping, managing finances, etc.?: No Are you currently unemployed and looking for a job?: No Are you interested in more education?: No Please select the resources that you would like help with: None Currently or been in a relationship where the following occur: No concerns reported THRIVE Score: 0 KATHERINE-7 AMB Questionnaire KATHERINE-7 Date KATHERINE - 7 assessed: 01/07/25 Source: Developed by Drs. Davin Hwang, Maegan Lawson, Juan Albarado and colleagues, with an educational hermilo from [employer]. Review of Systems Const Details: Const Denies chills, Denies fatigue, Denies fever(s), Denies headache(s) and Denies weakness ENT Denies dizziness and Denies headache(s) Card Denies chest pain, Denies lightheadedness, Denies dyspnea and Denies other (Palpitations) Resp Denies cough, Denies dyspnea, Denies wheezing and Denies other ( shortness of breath) GI Denies abdominal pain, Denies melena, Denies hematochezia, Denies change in bowel habits, Denies dyspepsia and Denies nausea Denies hematuria and Denies dysuria Musc Denies abnormal gait, Denies myalgias, Denies arthralgias, Denies numbness and Denies tingling Skin/Breast Denies rash, Denies unusual bruising and Denies wounds Neuro Denies abnormal gait, Denies dizziness, Denies headache(s), Denies memory loss, Denies numbness, Denies Sensory deficit (Neuro), Denies tingling and Denies weakness Psych Denies anxiety, Denies depression, Denies memory loss Endo Denies cold intolerance, Denies fatigue, Denies heat intolerance, Denies polydipsia and Denies polyuria Aller/Immun Denies wheezing Physical exam (Primary Care) Vital Signs: Last Vital Signs Temp 98.3 F 04/29/25 15:59 Pulse 84 04/29/25 15:59 Resp 16 04/29/25 15:59 BP 125/66 04/29/25 15:59 Pulse Ox 98 04/29/25 15:59 Oxygen Delivery Method Room Air 04/29/25 15:59 BMI result Body Mass Index 39.0 Tobacco/Smoking Status: Tobacco use Status Tobacco use date assessed 04/29/25 04/29/25 16:04 Patient Tobacco Use Status Never used Tobacco 04/29/25 15:55 e-Cigarette/Vaping Use Never Used 04/29/25 15:55 PHQ-9: PHQ-9 Score PHQ-9: Total score 2 04/29/25 15:55 Thrive Assessment: Date of Thrive Assessment Date Thrive assessed 01/04/25 04/29/25 15:55 Currently or been in a relationship where the following occur: No concerns reported Const Other: General: no acute distress and well developed Nutritional Appearance: well nourished Orientation/consciousness: patient oriented x3 HENMT Head: Yes normocephalic and Yes atraumatic Eyes General: appearance normal, both eyes and all related structures Pupils: Equal, round and reactive pupils present EOM: EOMs intact bilaterally Resp Effort & Inspection: normal respiratory effort Auscultation: clear to auscultation bilaterally Cardio Rate: regular rate Rhythm: regular rhythm Heart sounds: S1 normal heart sound present, S2 normal heart sound present, no gallops, no murmurs and no rubs GI Palpation (GI): No Abdominal aortic bruit present, Soft to palpation, nontender, No hepatosplenomegaly present and No Rebound tenderness present Auscultation: normal bowel sounds General: Yes no CVA tenderness Back/Spine/Pelvis Back: no CVA tenderness Cervical Spine: cervical ROM normal and No Cervical spine tenderness Thoracic/Lumbar Spine: thoraco-lumbar ROM normal, No pain with thoraco-lumbar ROM, No thoracic spinal tenderness and No lumbar spinal tenderness Extrem General: Yes normal to inspection, No edema and No calf tenderness Skin General: warm and dry. Normal skin color. Normal skin turgor Neuro General: patient oriented x3, gait normal and no focal neuro deficit Cranial nerves: Yes Equal, round and reactive pupils present Cognition (Neuro): normal cognition Gait exam (Neuro): Normal gait present Sensory Exam: No Sensory deficit (Neuro) Psych Appearance: grossly normal Affect: normal affect Attitude: cooperative Thought process: Normal thought process present Results AMB Hemoglobin A1c AMB Hemoglobin A1c 5.4 % Last Edit by Rhonda Sargent MA on 04/29/25 16:19 Coding Level of Care Code Est Pt Level 4 (61036) Diagnoses Type 2 diabetes mellitus E11.9 Hypercalcemia E83.52 Hyperlipidemia E78.5 Obesity (BMI 30-39.9) E66.9 Herpes simplex B00.9 Assessment & Plan Assessment & Plan (1) Type 2 diabetes mellitus: Code(s): E11.9 - Type 2 diabetes mellitus without complications Category: Medical Plan: A1c today is 5.4%, within goal of less than 7.0%. Previous A1c was 5.5%. Pioglitazone discontinued. Continue current treatment regimen. ADA diet and routine exercise encouraged. Follow-up 3 months or sooner with symptoms or concerns. Verbalized understanding and agreed with the plan. (2) Hypercalcemia: Code(s): E83.52 - Hypercalcemia Category: Medical Plan: Recent calcium level was normal. (3) Hyperlipidemia: Code(s): E78.5 - Hyperlipidemia, unspecified Category: Medical Plan: Recent lipid panel level is normal. Continue current treatment regimen. Advised to limit foods high in saturated fat and avoid foods high in trans fat. Routine exercise encouraged. Will monitor lipid panel level annually or as needed. (4) Obesity (BMI 30-39.9): Code(s): E66.9 - Obesity, unspecified Category: Medical Plan: She currently weighs 241 lb, BMI is 39.0. She has only lost a few lb since she started taking phentermine 15 mg daily. Intermittent increased to is 37.5 mg daily; advised to take as prescribed. Follow-up as needed. Verbalized understanding and agreed with plan. 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 Valacyclovir 500 mg daily ordered for suppression; advised to take as prescribed. Instructed on the risks, benefits, potential adverse reactions of the medication. Follow-up as needed. Verbalized understanding and agreed with the plan. Orders: Orders AMB Hemoglobin A1c Today Z13.9 - Encounter for screening, unspecified Medications: New valacyclovir 500 mg PO DAILY 90 tabs 3RF 90 days phentermine must administer 30 minutes before or 1-2 hours after breakfast 37.5 mg PO DAILY 30 tabs 0RF 30 days Changed From metformin 1,000 mg PO BID To metformin 1,000 mg PO BID 180 tabs 2RF 90 days Discontinued phentermine must administer 2 hours after breakfast Discontinued Reason: Doctor's Order 15 mg PO DAILY 30 days 30 caps 0RF valacyclovir (Valtrex) Discontinued Reason: Doctor's Order 1,000 mg PO DAILY 5 days 5 tabs 0RF
--- OUTSIDE RECORDS SUMMARY | 2025-04-29 15:55 | XMS_ITS | Clinical Summary ---
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 Name Role Phone Unavailable Primary Care Provider [...] Health Maintenance Results * Hemoglobin A1c (05/07/2024) [facility] Hemoglobin A1C 5.6 <=6.5 % Blood Venous blood specimen / Unknown [facility] Provider LAB BLOOD ORDERABLES Christy l Result * Urine Albumin Creatinine Ratio (11/20/2023) [facility] Urine Albumin Creatinine Ratio Abstracted [facility] Provider HEALTH MAINTENANCE Final Result * Annual BMP Blood Test (11/20/2023) [facility] Annual BMP Blood Test Abstracted [facility] Provider HEALTH MAINTENANCE Final Result * Lipid panel (11/20/2023) [facility] LDL/HDL Ratio 2 0 - 4 Triglycerides 84 0 - 150 mg/dL Cholesterol 134 0 - 200 mg/dL HDL 59 >=40 mg/dL LDL Cholesterol 59 mg/dL Blood Venous blood specimen / Unknown Result [facility] Provider LAB BLOOD ORDERABLES Christy l Result * Diabetes Eye Exam (10/14/2023) [facility] Diabetes: Annual Retina Eye Exam Abstracted Result [facility] Provider HEALTH MAINTENANCE Final Result * KATH SCREENING DIGITAL (06/02/2022 8:38 AM EDT) Anatomical Region Laterality Modality Mammography 05/30/2022 10:0 3 AM EDT Narrative 06/02/2022 8:38 AM EDT [facility] Diagnostic Imaging Department [address] [place] [address] Patient: MATT CARRENOO.B./Age/Sex: 1970 - 52 - F Unit#: [id number] Location/Status: [facility]REG I Mnemonic/Ordering Site: [facility] Ordering Physician: ALYSSIA GRAVES MD Kath [...] MLO projection. 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 TISSUE DENSITY: a. The [...] Special view LEFT as soon as possible [id number], [id number] 3340F, 7025F Dictating Physician: MACK BEACH MD Electronically Signed by: MACK BEACH MD Dic Date/Time: 06/02/22831 Sign date/Time: 06/02/22837 Procedure Note Luci Beach MD - 07/31/2022 [facility] Diagnostic Imaging Department [address] [place] [address] Patient: MATT CARRENO Jordan /Age/Sex: 1970 - 52 - F Unit#: [id number] Location/Status: [facility]/REG CLI Mnemonic/Ordering Site: [facility] Ordering Physician: ALYSSIA GRAVES MD Kath Screening Digital - 06/01/22834 EXAM: Kath Screening Digital EXAM DATE AND TIME: 06/01/2022 8:35 AM HISTORY: Annual screening. Family history of breast carcinoma inmaternal grandmother. COMPARISON: 04/07/2021, 03/16/2019 TECHNIQUE: CC and MLO views of both breasts were obtained using fullfield digital mammography. Bilateral digital breast tomosynthesis was performedin the MLO projection. 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 TISSUE DENSITY: a. The breasts are [...] Special view LEFT as soon as possible [id number], [id number] 3340F, 7067F Dictating Physician: MACK BEACH MD Electronically Signed by: MACK BEACH MD Dic Date/Time: 06/02/22831 Sign date/Time: 06/02/22837 us Alyssia Graves MD IMG BI PROCEDURES Final Result from Last 3 Months or Most Recently Relevant to Health Maintenance
[2025-04-29 15:59] VITALS: BP 125/66; PULSE 84; RESP 16; TEMP 36.8; O2SAT 98; BMI 39.0
== END 2025-04-29 16:29 | disposition home or self-care (01) ==
LOC: HO.HMCFM 15:53
PROVIDERS: PCP Nurse Practitioner Family; Visit Provider Nurse Practitioner Family
DX: E11.9 Type 2 diabetes mellitus without complications (principal); E83.52 Hypercalcemia; E66.9 Obesity, unspecified; Z68.39 Body mass index [BMI] 39.0-39.9, adult; E78.5 Hyperlipidemia, unspecified; B00.9 Herpesviral infection, unspecified

== ENCOUNTER → 2025-04-29 15:52 | Outpatient (BNVA) | payer OTHER, SELFPAY | PROVIDERS: PCP Nurse Practitioner Family; Visit Provider Nurse Practitioner Family | DX: E11.9 Type 2 diabetes mellitus without complications (principal); E83.52 Hypercalcemia; E78.5 Hyperlipidemia, unspecified; E66.9 Obesity, unspecified; B00.9 Herpesviral infection, unspecified; Z68.39 Body mass index [BMI] 39.0-39.9, adult; Z79.899 Other long term (current) drug therapy | CPT/HCPCS: 83036; 99212 ==

== ENCOUNTER 2025-07-25 14:25 | Outpatient (AMB) | payer OTHER, SELFPAY ==
--- NOTE | 2025-07-25 14:29 | MHC.PC.OV ---
Vital Signs 07/25/25 14:30 Height 5 ft 6 in Weight 239 lb 4 oz BMI 38.6 BP 126/74 Blood Pressure Location Rt brachial Position Sitting Respiration 14 Pulse 85 Pulse Source Pulse Oximeter Temp 98.1 F Temp Source Oral Pulse Oximetry (%) 97 Oxygen Delivery Method Room Air Intake Visit Reasons: JULIUS/Maximiliano Diabetes Intake Note: Transfer of care Allergies No Known Allergies Allergy (Verified 07/25/25 14:32) Tobacco use date assessed: 07/25/25 Dental Screening Dental Screen Date: 04/29/25 HPI HPI Comments History of Present Illness Details 55-year-old female presents for type 2 diabetes, hypothyroid, obesity presenting for follow up. Internal transfer. Diabetes-well controlled with A1C 5.6%. on metformin 1000mg twice daily. Off actos. Diabetic eye exam is up to date. Hypothyroid-On levothyroxine ?100mcg M-F, 150mcg Sat, Sun. Will switch to 137mcg daily and recheck 3 months Bilateral knee pain, chronic. Would like to see orthopedics. Ongoing rhinitis, cough on and off for the past one month. ROS CONSTITUTIONAL: Denies weight loss, fever and chills. HEENT: Denies changes in vision and hearing. RESPIRATORY: see HPI CV: Denies palpitations and CP GI: Denies abdominal pain, nausea, vomiting and diarrhea. : Denies dysuria and urinary frequency. MSK: Bilateral knee pain SKIN: Denies rash and pruritus. NEUROLOGICAL: Denies headache PSYCHIATRIC: Denies recent changes in mood. PHYSICAL EXAM: GENERAL: Alert and oriented x 3. NAD EYES: EOMI. Anicteric. HENT: Moist mucous membranes. No scleral icterus. No cervical lymphadenopathy. LUNGS: Clear to auscultation bilaterally. CARDIOVASCULAR: Regular rate and rhythm. No murmur. No JVD. ABDOMEN: Soft, non-tender +bs EXTREMITIES: No edema. Non-tender. SKIN: No rashes or lesions. Warm. NEUROLOGIC: No focal neurological deficits. CN II-XII grossly intact PSYCHIATRIC: Cooperative. Appropriate mood and affect [facility] Medical History Swelling Diabetes Thyroid disorder History of sinus problem Hernia Surgical History History of ankle surgery Family History Father Alcohol abuse Diabetes Sister Thyroid disorder Social History Housing: Apartment Alcohol intake: current Patient Tobacco Use Status: Never used Tobacco e-Cigarette/Vaping Use: Never Used Second Hand Smoke Exposure: No service: No Current occupational status: employed Current occupation: [employer] Current occupational exposures/hazards: No Cognitive needs: No Hearing needs: No Vision needs: Yes Questionnaire Thrive Questionnaire Date Thrive assessed: 01/04/25 I am a: Patient What is your living situation today?: I have a steady place to live Within the past 12 months, did the food you bought not last and you didn't have the money to get more?: Never true Within the past 12 months, did you worry whether your food would run out before you got money to buy more?: Never true Do you have trouble paying for medicines?: No Do you have trouble getting transportation to medical appointments?: No Do you have trouble paying your heating and electricity bill?: No Do you have trouble taking care of your child, family member or friend?: No Do you have trouble with day-to-day activities such as bathing, preparing meals, shopping, managing finances, etc.?: No Are you currently unemployed and looking for a job?: No Are you interested in more education?: No Please select the resources that you would like help with: None Currently or been in a relationship where the following occur: No concerns reported THRIVE Score: 0 AUDIT C Alcohol Use Questionnaire (AUDIT-C) 1. How often do you have a drink containing alcohol?: Monthly or less 2. How many drinks containing alcohol do you have on a typical day when you are drinking?: 1 or 2 3. How often do you have six or more drinks on one occasion?: Never Total Score: 1 KATHERINE-7 AMB Questionnaire KATHERINE-7 Date KATHERINE - 7 assessed: 01/07/25 Source: Developed by Drs. Davin Hwang, Maegan Lawson, Juan Albarado and colleagues, with an educational hermilo from [employer]. Physical exam (Primary Care) Vital Signs: Last Vital Signs Temp 98.1 F 07/25/25 14:30 Pulse 85 12/15/25 14:30 Resp 14 07/25/25 14:30 BP 126/74 07/25/25 14:30 Pulse Ox 97 07/25/25 14:30 Oxygen Delivery Method Room Air 07/25/25 14:30 BMI result Body Mass Index 38.6 Tobacco/Smoking Status: Tobacco use Status Tobacco use date assessed 07/25/25 07/25/25 14:41 Patient Tobacco Use Status Never used Tobacco 07/25/25 14:46 e-Cigarette/Vaping Use Never Used 07/25/25 14:46 Thrive Assessment: Date of Thrive Assessment Date Thrive assessed 01/04/25 07/25/25 14:41 Currently or been in a relationship where the following occur: No concerns reported Results AMB Hemoglobin A1c AMB Hemoglobin A1c 5.6 % Last Edit by Sindy Narvaez CMA on 07/25/25 14:45 Results Reviewed Results Reviewed: Laboratory Last Values Hgb A1c (Clinic) 5.6 % (4.0-6.0) 07/25/25 14:41 Coding Level of Care Code Add On Preventative Visit Only Diagnoses Type 2 diabetes mellitus without complication, without long-term current use of insulin E11.9 Diabetes mellitus correction insulin use: without correction use Diabetes mellitus complication status: without complication Hypothyroidism, unspecified type E03.9 Hypothyroidism type: unspecified Obesity (BMI 30-39.9) E66.9 Assessment & Plan Assessment & Plan (1) Type 2 diabetes mellitus: Code(s): E11.9 - Type 2 diabetes mellitus without complications Category: Medical Qualifiers: Diabetes mellitus correction insulin use: 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 Add mounjaro 2.5mg weekly. Continue metformin Hypothyroid-transition to 137mcg daily and recheck 3 months URI-ongoing. Zpak sent Bilateral knee pain-refer ortho. xr ordered Orders: Orders Lipid Panel 3 Months E03.9 - Hypothyroidism, unspecified, E11.9 - Type 2 diabetes mellitus without complications, E66.9 - Obesity, unspecified Comprehensive Met. Panel 3 Months E03.9 - Hypothyroidism, unspecified, E11.9 - Type 2 diabetes mellitus without complications, E66.9 - Obesity, unspecified XR knee LT 2V Today M25.561 - Pain in right knee, M25.562 - Pain in left knee XR knee RT 2V Today M25.561 - Pain in right knee, M25.562 - Pain in left knee AMB Hemoglobin A1c Today E11.9 - Type 2 diabetes mellitus without complications Hemoglobin A1c 3 Months E03.9 - Hypothyroidism, unspecified, E11.9 - Type 2 diabetes mellitus without complications, E66.9 - Obesity, unspecified TSH reflex Free T4 3 Months E03.9 - Hypothyroidism, unspecified, E11.9 - Type 2 diabetes mellitus without complications, E66.9 - Obesity, unspecified Referrals Orthopedics Referral M25.561 - Pain in right knee, M25.562 - Pain in left knee Medications: New levothyroxine (Levoxyl) 137 mcg PO DAILY 90 tabs 3RF Mounjaro (tirzepatide) for 4 weeks 2.5 mg (0.5 mL) subcut QWEEK 2 mL 1RF NS E11.9 - Type 2 diabetes mellitus without complications azithromycin For 250 mg dose pack: take 500 mg today (day 1), then 250 mg for 4 days (days 2-5) PO 6 tabs 0RF ondansetron HCl 4 mg PO Q8H PRN 30 tabs 1RF nausea and vomiting Refilled metformin 1,000 mg PO BID 180 tabs 3RF 90 days valacyclovir 500 mg PO DAILY 90 tabs 3RF 90 days atorvastatin 10 mg PO DAILY 90 tabs 3RF
[2025-07-25 14:30] VITALS: BP 126/74; PULSE 85; RESP 14; TEMP 36.7; O2SAT 97; BMI 38.6
--- OUTSIDE RECORDS SUMMARY | 2025-07-25 20:48 | XMS_ITS | Clinical Summary ---
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 Name Role Phone Unavailable Primary Care Provider [...] Noted Date Diagnosed Date DM (diabetes mellitus) 11/19/2023 Fatty liver 11/19/2023 Hypothyroidism 11/19/2023 Closed [...] Orientation Straight 02/22/2025 12 :23 PM EDT Last Filed Vital Signs Vital Sign Reading [...] Health Maintenance Due Date Last Done Comments Colorectal Cancer Screening: Colonoscopy 1969 Diabetes: Annual Foot Exam 1979 DTaP,Tdap,and Td Vaccines (1 - Tdap) 01/14/1988 Hepatitis B Vaccines (1 of 3 - 19+ 3-dose series) 01/14/1988 Pneumococcal Vaccine: 50+ Years (1 of 2 - PCV) 01/14/1988 Cervical Cancer Screening: P ap Smear 1990 Zoster Vaccines (1 of 2) 2019 HIV Screening 07/13/2022 Hepatitis C Screening 07/13/2022 Social Influencers of Health Screening 07/13/2022 Breast Cancer Screening 06/02/2024 06/02/20 22, 04/08/2021, 03/16/2019 Depression Screening 08/11/2024 Diabetes: Annual Retina Eye Exam 10/13/2024 10/14/2023 Diabetes: Blood Sugar Contro l Test (HGBA1C) 11/04/2024 05/07/2024, 05/07/2024 Diabetes: Annual Urine Albumin-Creatinine Ratio (uACR) 11/19/2024 11/20/2023 Diabetes: Annual GFR (Glomerular Filtration Rate) 11/19/2024 11/20/2023 COVID-19 Vaccine (1 - 2024-2 6 season) 2025 Influenza Vaccine (#1) 2025 Cholesterol Screening (Lipid Panel) 11/19/2028 11/20/2023 RSV Immunization Adult Patients (1 - 1-dose 75+ series) 01/14/2044 HIB Vaccines Aged Out No longer eligi ble based on patient's age to complete this topic HPV Vaccines Aged Out No longer eligi ble based on patient's age to complete this topic Hepatitis A Vaccines Aged Out No long er eligible based on patient's age to complete [...] Routine 11/20/2023 DIABETES EYE EXAM Routine 10/14/2023 [facility] SCREENING DIGITAL Routine 06/02/2022 8:38 AM EDT Encounter for screening mammogram for malignant neoplasm of breast from Last 3 Months or Most Recently Relevant to Health Maintenance Results * Hemoglobin A1c (05/07/2024) [facility] Hemoglobin A1C 5.6 <=6.5 % Blood Venous blood specimen / Unknown Result [facility] Provider LAB BLOOD ORDERABLES Christy l Result * Urine Albumin Creatinine Ratio (11/20/2023) [facility] Urine Albumin Creatinine Ratio Abstracted [facility] Provider HEALTH MAINTENANCE Final Result * Annual BMP Blood Test (11/20/2023) [facility] Annual BMP Blood Test Abstracted Result [facility] Provider HEALTH MAINTENANCE Final Result * Lipid panel (11/20/2023) [facility] LDL/HDL Ratio 2 0 - 4 Triglycerides 84 0 - 150 mg/dL Cholesterol 134 0 - 200 mg/dL HDL 59 >=40 mg/dL LDL Cholesterol 59 mg/dL Blood Venous blood specimen / Unknown Result [facility] Provider LAB BLOOD ORDERABLES Christy l Result * Diabetes Eye Exam (10/14/2023) [facility] Diabetes: Annual Retina Eye Exam Abstracted Result [facility] Provider HEALTH MAINTENANCE Final Result * KATH SCREENING DIGITAL (06/02/2022 8:38 AM EDT) Anatomical Region Laterality Modality Mammography 05/30/2022 10:0 3 AM EDT Narrative 06/02/2022 8:38 AM EDT [facility] Diagnostic Imaging Department [address] [place] [address] Patient: MATT CARRENO /Age/Sex: 1970 - 52 - F Unit#: [id number] [facility] Mnemonic/Ordering Site: [facility] Ordering Physician: ALYSSIA GRAVES MD [...] MLO projection. Computer aided detection with the [employer] 7.2-H was employed. TISSUE DENSITY: a. The [...] Special view LEFT as soon as possible [id number], [id number] 3340F, 7025F Dictating Physician: MACK BEACH MD Electronically Signed by: MACK BEACH MD Dic Date/Time: 06/02/22831 Sign date/Time: 06/02/22837 Procedure Note Luci Beach MD - 07/31/2022 [facility] Diagnostic Imaging Department [address] [place] [address] Patient: MATT CARRENO /Age/Sex: 1970 - 52 - F Unit#: [id number] Location/Status: [facility]/REG CLI Mnemonic/Ordering Site: [facility] Ordering Physician: ALYSSIA GRAVES MD [...] MLO projection. Computer aided detection with the W[employer]eline 7.2-Well[place]as employed. TISSUE DENSITY: a. The breasts are [...] Special view LEFT as soon as possible [id number], [id number] 3340F, 7025F Dictating Physician: MACK BEACH MD Electronically Signed by: MACK BEACH MD Dic Date/Time: 06/02/22831 Sign date/Time: 06/02/22837 us Alyssia Graves MD IMG BI PROCEDURES Final Result from Last 3 Months or Most Recently Relevant to Health Maintenance
== END 2025-07-25 15:09 | disposition home or self-care (01) ==
LOC: HO.HMCFM 14:26
PROVIDERS: PCP Internal Medicine; Visit Provider Internal Medicine
DX: E11.9 Type 2 diabetes mellitus without complications (principal); E03.9 Hypothyroidism, unspecified; E66.9 Obesity, unspecified; Z68.38 Body mass index [BMI] 38.0-38.9, adult

== ENCOUNTER → 2025-07-25 14:25 | Outpatient (BNVA) | payer OTHER, SELFPAY | PROVIDERS: PCP Nurse Practitioner Family; Visit Provider Internal Medicine | DX: E11.9 Type 2 diabetes mellitus without complications (principal); E03.9 Hypothyroidism, unspecified; E66.9 Obesity, unspecified; Z68.38 Body mass index [BMI] 38.0-38.9, adult; Z71.3 Dietary counseling and surveillance | CPT/HCPCS: 83036; 99212 ==

== ENCOUNTER 2025-07-28 10:19 | Outpatient (REF) | payer OTHER, SELFPAY ==
--- NOTE | ~2025-07-28 | XR_ITS ---
EXAMINATION: X-ray bilateral knees CLINICAL INFORMATION: Pain COMPARISON: None TECHNIQUE: AP bilateral knees one view. Right knee 1 view. Left knee 1 view. FINDINGS: Right knee: No acute fracture, dislocation or suspicious bony lesion. Mild-moderate medial compartment, mild patellofemoral compartment arthritis. Small joint effusion. Left knee: No acute fracture, dislocation or suspicious bony lesion. Mild-moderate medial compartment, mild patellofemoral compartment arthritis. Small joint effusion. XR/XR Knee Andres 1or 2V IMPRESSION: Arthritis in bilateral knees as above. Small bilateral joint effusion. Electronically signed by: Jerzy Walden MD 07/28/2025 03:06 PM [facility]
--- OUTSIDE RECORDS SUMMARY | 2025-07-28 12:48 | XMS_ITS | Clinical Summary ---
Author Organization 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 Name Role Phone Unavailable Primary Care Provider [...] Routine 11/20/2023 DIABETES EYE EXAM Routine 10/14/2023 [facility] SCREENING DIGITAL Routine 06/02/2022 8:38 AM EDT Encounter for screening mammogram for malignant neoplasm of breast from Last 3 Months or Most Recently Relevant to Health Maintenance Results * Hemoglobin A1c (05/07/2024) [facility] Hemoglobin A1C 5.6 <=6.5 % Blood Venous blood specimen / Unknown Result [facility] Provider LAB BLOOD ORDERABLES Christy l Result * Urine Albumin Creatinine Ratio (11/20/2023) [facility] Urine Albumin Creatinine Ratio Abstracted [facility] Provider HEALTH MAINTENANCE Final Result * Annual BMP Blood Test (11/20/2023) [facility] Annual BMP Blood Test Abstracted Result [facility] Provider HEALTH MAINTENANCE Final Result * Lipid panel (11/20/2023) [facility] LDL/HDL Ratio 2 0 - 4 Triglycerides 84 0 - 150 mg/dL Cholesterol 134 0 - 200 mg/dL HDL 59 >=40 mg/dL LDL Cholesterol 59 mg/dL Blood Venous blood specimen / Unknown Result [facility] Provider LAB BLOOD ORDERABLES Christy l Result * Diabetes Eye Exam (10/14/2023) [facility] Diabetes: Annual Retina Eye Exam Abstracted Result [facility] Provider HEALTH MAINTENANCE Final Result * KATH SCREENING DIGITAL (06/02/2022 8:38 AM EDT) Anatomical Region Laterality Modality Mammography 05/30/2022 10:0 3 AM EDT Narrative 06/02/2022 8:38 AM EDT [facility] Diagnostic Imaging Department [address] [place] [address] Patient: MATT CARRENO /Age/Sex: 1970 - 52 - F Unit#: [id number] [facility]Ordering Site: [facility] Ordering Physician: ALYSSIA GRAVES MD Kath [...] MLO projection. Computer aided detection with the itzbig 7.2-H was employed. TISSUE DENSITY: a. The [...] Special view LEFT as soon as possible [id number], [id number] 3340F, 7025F Dictating Physician: MACK BEACH MD Electronically Signed by: MACK BEACH MD Dic Date/Time: 06/02/22831 Sign date/Time: 06/02/22837 Procedure Note Luci Beach MD - 07/31/2022 [facility] Diagnostic Imaging Department [address] [place] [address] Patient: MATT CARRENO /Age/Sex: 1970 - 52 - F Unit#: [id number] Location/Status: [facility]/REG CLI Mnemonic/Ordering Site: [facility] Ordering Physician: ALYSSIA GRAVES MD Kath Screening Digital - 06/01/22834 EXAM: Kath Screening Digital EXAM DATE AND TIME: 06/01/2022 8:35 AM HISTORY: Annual screening. Family history of breast carcinoma inmaternal grandmother. COMPARISON: 04/07/2021, 03/16/2019 TECHNIQUE: CC and MLO views of both breasts were obtained using fullfield digital mammography. Bilateral digital breast tomosynthesis was performedin the MLO projection. Computer aided detection with the itzbig 7.2-Friend.lyas employed. TISSUE DENSITY: a. The breasts are [...] Special view LEFT as soon as possible [id number], [id number] 3340F, 7025F Dictating Physician: MACK BEACH MD Electronically Signed by: MACK BEACH MD Dic Date/Time: 06/02/22831 Sign date/Time: 06/02/22837 us Alyssia Graves MD IMG BI PROCEDURES Final Result from Last 3 Months or Most Recently Relevant to Health Maintenance
== END 2025-07-28 10:20 | disposition home or self-care (01) ==
LOC: HO.XRAY 10:19
PROVIDERS: PCP Internal Medicine; Visit Provider Internal Medicine
DX: M25.561 Pain in right knee (principal); M25.562 Pain in left knee
CPT/HCPCS: 73560

== ENCOUNTER → 2025-07-28 10:25 | Outpatient (BNV) | payer OTHER, SELFPAY | PROVIDERS: PCP Internal Medicine; Visit Provider Radiology Diagnostic Ultrasound | DX: M17.0 Bilateral primary osteoarthritis of knee (principal); M25.462 Effusion, left knee; M25.461 Effusion, right knee | CPT/HCPCS: 73560 ==